=== PATIENT | male | born 1955 | race Two or more races ===

== ENCOUNTER 2022-04-09 07:16 | Outpatient (CLI) | payer OTHER | END 2022-04-09 07:18 | disposition home or self-care (01) | LOC: NUCLEAR 07:16 | PROVIDERS: ATTEND Internal Medicine Cardiovascular Disease | DX: R07.89 Other chest pain (principal) | CPT/HCPCS: 78452; 93017; A9500 ==

== ENCOUNTER 2023-01-22 08:24 | Outpatient (CLI) | payer OTHER | END 2023-01-22 08:25 | disposition home or self-care (01) | LOC: NUCLEAR 08:24 | PROVIDERS: ATTEND Internal Medicine Cardiovascular Disease | DX: I11.9 Hypertensive heart disease without heart failure (principal); I25.10 Atherosclerotic heart disease of native coronary artery without angina pectoris ==

== ENCOUNTER 2023-09-09 12:14 | Outpatient (CLI) | payer OTHER | END 2023-09-09 12:16 | disposition home or self-care (01) | LOC: NUCLEAR 12:14 | PROVIDERS: ATTEND Internal Medicine Cardiovascular Disease | DX: I50.9 Heart failure, unspecified (principal) | CPT/HCPCS: 78472; A9538; A9560 ==